=== PATIENT | male | born 1970 | race Caucasian/White ===

== ENCOUNTER → 2018-03-11 15:05 | Outpatient (CLI) | payer OTHER, SELFPAY ==
[2018-03-11 16:35] LABS: PSA,Total - Annual Screen 0.57 ng/mL (0.00-4.00)
== END ==
PROVIDERS: Family Provider Nurse Practitioner; PCP Nurse Practitioner; Visit Provider Urology
DX: Z12.5 Encounter for screening for malignant neoplasm of prostate (principal)
CPT/HCPCS: 36415; 84153; G0103

== ENCOUNTER 2018-09-04 08:57 | Observation (INO) | payer OTHER, SELFPAY ==
[2018-09-04] VITALS (12 sets, daily range): BP systolic 99–151; BP diastolic 56–96; PULSE 51–73; RESP 12–18; TEMP 36.4–36.8; O2SAT 95–98; BMI 26.6; BMI 25.7; BMI 25.8
--- NOTE | 2018-09-04 09:00 | NURSING ---
NO OLD EKGS
--- NOTE | 2018-09-04 09:10 | EKG12_ITS ---
Test Reason : CP/EPIGASTRIC PAIN Blood Pressure : / mmHG Vent. Rate : 070 BPM Atrial Rate : 070 BPM P-R Int : 142 ms QRS Dur : 080 ms QT Int : 404 ms P-R-T Axes : 041 005 056 degrees QTc Int : 436 ms Normal sinus rhythm Normal ECG Confirmed by TJ SIMMS ([id number]), fashion editor DOMENIC FUENTES ([id number]) on 09/08/2018 2:26:21 PM Referred By: ARPAN Confirmed By:TJ SIMMS
--- NOTE | 2018-09-04 09:12 | RAD_ITS ---
STUDY: X-RAY CHEST REASON FOR EXAM: Male, 48 years old. Chest pain. TECHNIQUE: Single AP portable view of the chest. COMPARISON: Comparison is made with prior study dated February 05, 2013. FINDINGS: EKG electrodes are seen. The lungs are clear and expanded. There is no demonstrated pleural abnormality. Normal size heart. Normal mediastinum and jeromy. Normal visualized pulmonary arteries. Normal visualized aortic arch and descending thoracic aorta. Normal visualized thoracic spine. Normal visualized ribs, clavicles, and shoulders. There is no demonstrated abnormality of the visualized soft tissue structures of the upper abdomen. RAD/Chest 1 View (Portable) IMPRESSION: Normal x-ray examination of the chest. Electronically Signed: Jovanny Reich MD at 10:16 EST Tel [phone], Service support ,
[2018-09-04] MEDS: 0.9% Normal Saline 1,000 ML 150 ML IV (09:16)
[2018-09-04] MEDS: Aspirin 81 MG TAB.CHEW 324 MG PO (09:18)
[2018-09-04 09:23] LABS: Absolute Lymphocyte Count 1.72 X10^3/ul (0.83-4.51); Basophil# 0.08 X10^3/uL; Basophil% 1.6 % (0-1); Eosinophil# 0.03 X10^3/uL; Eosinophils% 0.6 % (0-5); Hematocrit 46.7 % (40-54); Hemoglobin 15.8 g/dl (13.0-16.5); Lymphocyte # 1.72 X10^3/ul (4.0); Lymphocyte % 33.8 % (19-41); Mean Corp Hgb Conc 33.8 g/gl (32-36); Mean Corpuscular Volume 94.5 fL (80-94); Mean Platelet Vol. 10.8 fl (6.2-12.0); Monocyte# 0.27 X10^3/uL; Monocyte% 5.3 % (0-10); Neutrophil # 2.99 X10^3/uL (2.7-7.7); Neutrophil % 58.7 % (47-70); Platelet Count 182 K/mm3 (150-450); RBC Distribution Width CV 13.2 % (11.6-14.6); RBC Distribution Width SD 44.4 fl (35.1-43.9); Red Blood Count 4.94 M/mm3 (4.6-6.2); White Blood Count 5.1 K/mm3 (4.4-11.0)
[2018-09-04 09:25] LABS: Differential Indicated SCAN CRITERIA MET; POSITIVE COUNT NO; POSITIVE DIFFERENTIAL NO; POSITIVE MORPHOLOGY YES
--- NOTE | 2018-09-04 09:27 | ED.DCSUM_ITS ---
- ER Visit Summary Date of Service: 09/04/18 Chief Complaint: Chest and abdominal pain History of Present Illness: The patient is a 48 M who sees Linda cali. He reports that beginning yesterday he has had an intermittent upper abdominal and chest pain. He describes it as a sharp pain that lasts 2 minutes at a time. States pain is brought up by walking around and moderate activity. It resolves with rest. Is happened 4-5 times in the past 24 hours when he has been walking. It is not occurred at rest. He denies any associated nausea, vomiting, diaphoresis, or shortness of breath. On review of systems patient does report that he has had diarrhea for the past week. He states this is approximately 3-4 times per day. No blood in his stools or black tarry stools. Patient denies sick contacts. Has not been camping out of the country. No possible bad food exposure. Does not drink well water. No recent antibiotic use. Patient has no cardiac risk factors. He denies personal or family history of DVT. No recent travel. No ankle swelling or calf pain. He did have a stress test approximately 2 years ago. Physical Examination: Vitals: Stable. Afebrile. General: Well-nourished and well-developed. Head: Normocephalic atraumatic. Neck: Supple, no lymphadenopathy. No JVD. Nontender. Cardiovascular: Regular rate and rhythm. No murmurs. Respiratory: No respiratory distress. Clear to auscultation bilaterally. Abdominal: Soft, nontender, nondistended, normal bowel sounds. No guarding, rebound, or peritoneal signs. Back: Nontender. Extremities: Nontender, no edema. Skin: Normal color, no rash. Neurologic: Alert and oriented ?3. Cranial nerves II through XII are intact. Normal strength and sensation. Psych: Normal affect. Test Results: EKG is sinus at [address] changes. There is no old EKG for comparison. CBC is remarkable for basophils of 2. Chem-7 is normal. LFTs are normal. Lipase is normal. Troponin is negative. Chest x-ray shows no acute disease. Emergency Department Course and Treatment: Patient was given aspirin p.o. and is resting comfortably. He has had no pain while here. Treatment Plan: The patient has a history that is highly suspicious of cardiac disease. He does not have risk factors. However, with exertional chest pain is resolved with rest I feel that he warrants admission for further evaluation. He was discussed with Dr. Hardy. Disposition: Admitted in stable condition. Impression: 1. Chest pain. 2. WESTON score of 1. This note was generated with [employer] dictation software. It may contain incorrect words, spelling, and punctuation that were not noted in review of the chart prior to signing ED Disposition - Plan for ED Patient: Chief Complaint: Abd Pain Referrals: Linda Daniel NP-C [Primary Care Provider] -
[2018-09-04 09:43] LABS: AST(SGOT) 18 U/L (15-37); Alanine Aminotransfer ALT/SGPT 29 U/L (16-61); Albumin, Serum 4.3 g/dL (3.2-5.0); Alkaline Phosphatase 60 U/L (45-117); Anion Gap 5 (5-15); BUN 11 mg/dL (7-18); BUN/Creat Ratio 9.9 RATIO (10-20); Bilirubin, Direct 0.17 mg/dL (0.00-0.30); Calcium,Total 8.8 mg/dL (8.5-10.1); Chloride 104 mmol/L (98-107); Creatinine, Serum 1.11 mg/dL (0.70-1.30); EST Glomerular Filtration Rate 75 mL/min (>60); Est Glom Filt Rate - Afr Amer 90 mL/min (>60); Estimated Creatinine Clearance 79.62 ml/min; Globulin 3.6 g/dL (2.2-4.2); Glucose 82 mg/dL (74-106); Lipase 136 U/L (73-393); Potassium 3.8 mmol/L (3.5-5.1); Protein, Total 7.9 g/dL (6.4-8.2); Sodium Level 139 mmol/L (136-145)
[2018-09-04 09:48] LABS: Reactive Lymphocyte 1+
--- NOTE | 2018-09-04 10:50 | NURSING ---
DR SHOAIB ANTONY
--- NOTE | 2018-09-04 10:55 | PCM.HP.STD ---
Problem List (1) Chest pain Status: Acute History of Present Illness Date of Admission: 09/04/18 Chief Complaint: Chest pain The patient is a 48 year old M lady looks good health with no medical comorbidities presents with chest pain. Symptoms started a day prior to coming in. Patient did not related chest pain to any activity. Pain was described as pressure located in the retrosternal region radiating up his neck. In view of the persistent nature of his symptoms he presented to the emergency department. His initial set of cardiac enzymes and EKG came back unremarkable subsequently admitted to a monitored bed for further management Past Medical History Allergies No Known Allergies Allergy (Verified 09/04/18 09:00) Home Medications: Ambulatory Orders Medication Instructions Recorded NK 09/04/18 Smoking Status: Never smoker - *Family History Maternal History Items: - - Osteoarthritis Paternal History Items: No pertinent history Review of Systems Constitutional: Denies: Anorexia, Chills, Fever, Night Sweats, Weight Change HEENT: Denies: Head Aches, Sinus Congestion, Sinus Drainage Cardiovascular: Reports: Chest Pain. Denies: Orthopnea, Palpitations, Paroxysmal Noc. Dyspnea Respiratory: Denies: Cough, Shortness of breath at rest, Shortness of breath upon exertion, Sputum production Gastrointestinal: Denies: Abdominal Pain, Hematemesis, Hematochezia, Nausea, Melena, Vomiting Genitourinary: Denies: Dysuria, Frequency, Hematuria, Urgency Musculoskeletal: Denies: Joint Pain, Joint Tenderness Skin: Denies: Rash Neurological: Denies: Focal weakness, Numbness, Tingling Psychiatric: Denies: Homicidal Ideations, Suicidal Ideations Hematologic/ Lymphatic: Denies: Easy Bruising, Easy Bleeding VTE Information - Inpt Only VTE Present on Admission: No VTE Mechan Device Prophylaxis: Knee High EVAN Hose VTE Pharm Prophylaxis ordered?: Yes Patient Problems: Active and Suspected Problems Chest pain (Acute) Objective: GENERAL: cooperative HEENT: Atraumatic; moist oral mucosa EYES; Anicteric, Normal Conjunctiva NECK; supple, normal thyroid, no distended JVD. RESPIRATORY: Diminished to auscultation bilaterally, CARDIOVASCULAR: Regular S1 S2, no audible murmurs GI: soft, non-tender, normoactive bowel sounds, : No Renal angle tenderness; EXTREMITIES: No edema, no clubbing, no cyanosis. MUSCULOSKELETAL: No Joint Tenderness; no muscle waisting NEURO: Awake; no lateralizing signs. SKIN: No Rash PSYCH; Normal affect - Physical Exam Vital Signs Temp Pulse Resp BP Pulse Ox 97.6 F L 63 15 119/82 H 98 09/04/18 08:59 09/04/18 10:00 09/04/18 10:00 09/04/18 10:00 09/04/18 10:00 Oxygen Delivery Method Room Air Weight: 81.647 kg Body Mass Index (BMI) 26.6 Laboratory Tests Past 24 Hrs 09/04/18 09/04/18 09/04/18 09:10 09:10 09:10 WBC 5.1 RBC 4.94 Hgb 15.8 Hct 46.7 MCV 94.5 H MCH 32.0 MCHC 33.8 RDW 13.2 RDW Differential 44.4 H Plt Count 182 MPV 10.8 Immature Gran % (Auto) 0.000 Neut % (Auto) 58.7 Lymph % (Auto) 33.8 [place] % (Auto) 5.3 Eos % (Auto) 0.6 Baso % (Auto) 1.6 H Absolute Neuts (auto) 3.0 Absolute Lymphs (auto) 1.72 Total Counted Not Reportable Reactive Lymphocytes 1+ Sodium 139 Potassium 3.8 Chloride 104 Carbon Dioxide 30.0 Anion Gap 5 BUN 11 Creatinine 1.11 Estim Creat Clear Calc 79.62 Est GFR (MDRD) Af Amer 90 Est GFR (MDRD) Non-Af 75 BUN/Creatinine Ratio 9.9 L Glucose 82 Calcium 8.8 Total Bilirubin 0.70 Direct Bilirubin 0.17 AST 18 ALT 29 Alkaline Phosphatase 60 Troponin I < 0.015 Total Protein 7.9 Albumin 4.3 Globulin 3.6 Lipase 136 Assessment/Plan All Active Problems Chest pain (Acute) Patient is a 48-year-old gentleman presenting with chest pain 1. Chest pain patient has been placed on monitored bed plan is to rule out CT with serial cardiac enzyme with a nuclear stress test 2. DVT prophylaxis SC Lovenox Code Visit OBSV E&M: 54936 Initial observation care L2
--- NOTE | 2018-09-04 11:03 | NURSING ---
PCU CP KITMERLY
--- NOTE | 2018-09-04 11:28 | ECHOD_ITS ---
Reason For Study: Chest pain Procedure This was a 2D Doppler, Color Flow transthoracic echocardiogram. The exam was of adequate technical quality. Exam performed portable in patient room. Left Ventricle Normal LV size. Left ventricular systolic function is normal. The estimated ejection fraction is 60 %. Transmitral doppler flow suggestive of impaired relaxation of left ventricle. No regional wall motion abnormalities noted. Right Ventricle Normal RV size. Normal systolic function. Atria Normal left atrium. Normal right atrium. No doppler evidence for ASD. Mitral Valve There is no mitral annular calcification. Mild diffuse mitral valve thickening. Trivial mitral valve insufficiency. Tricuspid Valve Normal tricuspid valve. Trivial tricuspid valve insufficiency. Aortic Valve Trisinus/trileaflet aortic valve. Normal aortic valve. Pulmonic Valve The pulmonic valve is not well visualized. Trivial pulmonic valve insufficiency. Great Vessels Borderline enlarged aortic root. Pericardium/Pleural No pericardial effusion. MMode/2D Measurements & Calculations LVIDd: 4.8 cm IVSd: 0.80 cm Ao root diam: 3.9 cm LVIDs: 3.1 cm LVPWd: 0.80 cm RVDd: 3.5 cm FS: 35.9 % LAV(MOD-bp): 37.4 ml EDV(MOD-sp4): 98.0 ml EDV(MOD-sp2): 108.1 ml LAV(MOD-bp) Indexed: 19.2 ml/m2 ESV(MOD-sp4): 46.6 ml EF(MOD-sp2): 58.0 % LAV(MOD-sp2): 36.3 ml EF(MOD-sp4): 52.4 % LAV(MOD-sp4): 34.4 ml SV(MOD-sp4): 51.4 ml SV(MOD-sp2): 62.7 ml LA A4 area: 15.2 cm2 LA dimension(2D): 2.7 cm RA A4 area: 14.7 cm2 Doppler Measurements & Calculations MV E max gopi: 52.2 cm/sec Lat Peak E' Gopi: 12.6 cm/sec Med Peak E' Gopi: 9.6 cm/sec MV A max gopi: 56.4 cm/sec E/E' lat: 4.1 E/E' med: 5.5 MV E/A: 0.93 Ao V2 max: 110.9 cm/sec LV V1 max: 91.6 cm/sec PA V2 max: 92.5 cm/sec Ao max P.9 mmHg LV V1 max P.4 mmHg Interpretation Summary Left ventricular systolic function is normal. The estimated ejection fraction is 60 %. Trivial mitral valve insufficiency. Trivial tricuspid valve insufficiency. Trivial pulmonic valve insufficiency. Borderline enlarged aortic root. Transmitral doppler flow suggestive of impaired relaxation of left ventricle Ordering Physician: Romeo Chopra Performed By: Elsa Little RDCS
--- NOTE | 2018-09-04 11:30 | EKG12_ITS ---
Test Reason : CP ADMISSION Blood Pressure : / mmHG Vent. Rate : 057 BPM Atrial Rate : 057 BPM P-R Int : 162 ms QRS Dur : 094 ms QT Int : 432 ms P-R-T Axes : 056 006 058 degrees QTc Int : 420 ms Sinus bradycardia Otherwise normal ECG No previous ECGs available Confirmed by TJ SIMMS ([id number]), city editor DOMENIC FUENTES ([id number]) on 09/08/2018 2:58:30 PM Referred By: SHOAIB Confirmed By:TJ SIMMS
[2018-09-04] MEDS: Acetaminophen 325 MG Tablet 650 MG PO (17:58)
[2018-09-05 02:35] VITALS: BP 95/48; PULSE 53; RESP 16; TEMP 36.9; O2SAT 96
[2018-09-05 02:58] VITALS: PULSE 60
[2018-09-05 05:31] LABS: Prothrombin Time (Protime)PT. 12.8 SECONDS (11.7-14.9)
[2018-09-05 05:32] LABS: Partial Thromboplast Time 26.2 Seconds (24.1-36.2)
[2018-09-05 05:37] LABS: D-Dimer Quantitative (DVT/PE) < 0.27 FEU/ug/m (0.27-0.49)
[2018-09-05 05:45] VITALS: BP 103/64; PULSE 57; RESP 16; TEMP 36.6; O2SAT 97
[2018-09-05 05:51] LABS: AST(SGOT) 15 U/L (15-37); Alanine Aminotransfer ALT/SGPT 26 U/L (16-61); Albumin, Serum 3.6 g/dL (3.2-5.0); Alkaline Phosphatase 51 U/L (45-117); Anion Gap 7 (5-15); BUN 10 mg/dL (7-18); BUN/Creat Ratio 10.4 RATIO (10-20); Bilirubin, Direct 0.14 mg/dL (0.00-0.30); Calcium,Total 8.3 mg/dL (8.5-10.1); Chloride 107 mmol/L (98-107); Creatinine, Serum 0.96 mg/dL (0.70-1.30); EST Glomerular Filtration Rate 88 mL/min (>60); Est Glom Filt Rate - Afr Amer 106 mL/min (>60); Estimated Creatinine Clearance 92.06 ml/min; Globulin 3.1 g/dL (2.2-4.2); Glucose 84 mg/dL (74-106); Potassium 4.1 mmol/L (3.5-5.1); Protein, Total 6.7 g/dL (6.4-8.2); Sodium Level 141 mmol/L (136-145); Thyroid Stim Hormone (TSH) 2.34 uIU/mL (0.358-3.74)
[2018-09-05] MEDS: Aspirin E.C. 81 MG Tablet PO (05:55)
[2018-09-05 06:00] LABS: Absolute Neutrophil Count 2.9 X10^3/uL (2.0-7.7); Basophil# 0.07 X10^3/uL; Basophil% 1.4 % (0-1); Eosinophils% 1.9 % (0-5); Hematocrit 44.9 % (40-54); Mean Corp Hgb Conc 33.4 g/gl (32-36); Mean Corpuscular Hgb 31.6 pg (27.0-32.0); Mean Corpuscular Volume 94.7 fL (80-94); Mean Platelet Vol. 10.8 fl (6.2-12.0); Monocyte# 0.36 X10^3/uL; Neutrophil # 2.91 X10^3/uL (2.7-7.7); Neutrophil % 56.5 % (47-70); Platelet Count 163 K/mm3 (150-450); RBC Distribution Width CV 13.2 % (11.6-14.6); RBC Distribution Width SD 44.5 fl (35.1-43.9); Red Blood Count 4.74 M/mm3 (4.6-6.2); White Blood Count 5.2 K/mm3 (4.4-11.0)
[2018-09-05 06:02] LABS: Differential Indicated SCAN CRITERIA MET; POSITIVE COUNT NO; POSITIVE DIFFERENTIAL NO; POSITIVE MORPHOLOGY YES
[2018-09-05 09:26] VITALS: BP 97/66; PULSE 68; RESP 16; TEMP 36.6; O2SAT 98
[2018-09-05] MEDS: Acetaminophen 325 MG Tablet 650 MG PO (09:39)
[2018-09-05 10:00] VITALS: PULSE 74
--- NOTE | 2018-09-05 10:38 | STRESSREP ---
Stress Test Report Exercise myocardial perfusion stress test 48-year-old male with a history of chest pain. Resting EKG demonstrates normal sinus rhythm with a rate of 59 beats minute normal intervals and noted resting blood pressure 116/78 mmHg. The patient exercised according to regular Elias protocol for total duration of 10 minutes patient completed 1 minute into stage IV of the Elias protocol the maximum heart rate attained was 164 bpm which was 96% of maximum predicted heart rate the maximum workload was 11.7 metabolic equivalents. At rest there were no ST or T wave changes noted suggest ischemia peak exercise upsloping ST changes were noted suggest ischemia no clinical angina was noted. Resting blood pressure 116/78 with a peak blood pressure 152/68. Rate pressure product was 24,600. Myocardial perfusion protocol. 11.8 mCi of technetium 99m sestamibi was injected at rest. The patient exercised according to regular Elias protocol for 10 minutes. At peak exercise 34.3 mCi of technetium 99m sestamibi was injected stress images were obtained stress and rest images were reconstructed and compared in the short axis vertical long horizontal long axis. Gated images were also obtained Perfusion SPECT analysis: Review of the stress images demonstrate normal uptake of tracer noted in all the rest of the myocardium. The resting images similarly demonstrate normal uptake of tracer noted in all areas of the myocardium. No areas of reversibility are noted suggest ischemia. Gated SPECT analysis: The gated ejection fraction is noted to be 65%. Conclusion: Normal exercise myocardial perfusion stress test at a high workload. No clinical angina noted. No arrhythmias present. Preserved ejection fraction.
--- NOTE | 2018-09-05 10:52 | PCM.DC.SUM ---
Discharge Date and Diagnosis - Problem List Patient Problems: Active and Suspected Problems Chest pain (Acute) Date of Admission: 09/04/18 - Primary Discharge Diagnosis Active and Suspected Problems Chest pain (Acute) Hospital Course and Treatment Imaging Results: 09/05/18 05:55 Nuclear Stress Test - Treadmil [NM] AM (NON MEDS) Summary of Care Provided: The patient is a 48 year old M [] Patient Problems: Active and Suspected Problems Chest pain (Acute) - Physical Exam Vital Signs Temp Pulse Resp BP Pulse Ox 97.9 F 74 16 97/66 98 09/05/18 09:26 09/05/18 10:00 09/05/18 09:26 09/05/18 09:26 09/05/18 09:26 Oxygen Delivery Method Room Air Weight: 79.2 kg Body Mass Index (BMI) 25.7 Intake and Output for Last 24 Hours 09/03/18 09/04/18 09/05/18 23:59 23:59 23:59 Intake Total 540 / 540 240 / 240 Balance 540 / 540 240 / 240 Laboratory Tests Past 24 Hrs 09/04/18 09/04/18 09/05/18 12:00 15:15 05:05 WBC RBC Hgb Hct MCV MCH MCHC RDW RDW Differential Plt Count MPV Immature Gran % (Auto) Neut % (Auto) Lymph % (Auto) [place] % (Auto) Eos % (Auto) Baso % (Auto) Absolute Neuts (auto) Absolute Lymphs (auto) Total Counted PT 12.8 INR 1.0 APTT 26.2 D-Dimer Quant (PE/DVT) < 0.27 L Sodium Potassium Chloride Carbon Dioxide Anion Gap BUN Creatinine Estim Creat Clear Calc Est GFR (MDRD) Af Amer Est GFR (MDRD) Non-Af BUN/Creatinine Ratio Glucose Calcium Total Bilirubin Direct Bilirubin AST ALT Alkaline Phosphatase Troponin I < 0.015 < 0.015 Total Protein Albumin Globulin TSH 09/05/18 09/05/18 05:05 05:05 WBC 5.2 RBC 4.74 Hgb 15.0 Hct 44.9 MCV 94.7 H MCH 31.6 MCHC 33.4 RDW 13.2 RDW Differential 44.5 H Plt Count 163 MPV 10.8 Immature Gran % (Auto) 0.200 Neut % (Auto) 56.5 Lymph % (Auto) 33.0 [place] % (Auto) 7.0 Eos % (Auto) 1.9 Baso % (Auto) 1.4 H Absolute Neuts (auto) 2.9 Absolute Lymphs (auto) 1.70 Total Counted Not Reportable PT INR APTT D-Dimer Quant (PE/DVT) Sodium 141 Potassium 4.1 Chloride 107 Carbon Dioxide 27.0 Anion Gap 7 BUN 10 Creatinine 0.96 Estim Creat Clear Calc 92.06 Est GFR (MDRD) Af Amer 106 Est GFR (MDRD) Non-Af 88 BUN/Creatinine Ratio 10.4 Glucose 84 Calcium 8.3 L Total Bilirubin 0.50 Direct Bilirubin 0.14 AST 15 ALT 26 Alkaline Phosphatase 51 Troponin I Total Protein 6.7 Albumin 3.6 Globulin 3.1 TSH 2.34 Home Medications: Medications to take at Discharge NK 09/04/18 Primary Care Physician: Linda Daniel NP-C [Primary Care Provider] - Medical Necessity - Tobacco Use Smoking Status: Never smoker
--- NOTE | 2018-09-05 10:54 | DCINST_ITS ---
- Discharge Diagnoses Current Active Problems: Current Active and Chronic Problems Chest pain (Acute) You will use the following diet at home:: No restrictions Your food should be the consistency of: Regular Discharge Activity: Return to Normal Activity Instructions: ED Chest Pain NonCardiac Allergies/Adverse Reactions: Allergies No Known Allergies Allergy (Verified 09/04/18 09:00) Medications to take at Discharge NK 09/04/18 Primary Care Physician: Linda Daniel NP-C [Primary Care Provider] - Please follow up with your Primary Care Physician in: in 1-2 weeks Test Results: Test results from this visit will be discussed in further detail at your follow- up appointment, if applicable. Proposed Discharge Date: 09/05/18
--- NOTE | 2018-09-05 10:56 | DS.PCM_ITS ---
Discharge Date and Diagnosis - Problem List Patient Problems: Active and Suspected Problems Chest pain (Acute) Date of Admission: 09/04/18 Date of Discharge: 09/05/18 - Primary Discharge Diagnosis Active and Suspected Problems Chest pain (Acute) Hospital Course and Treatment Imaging Results: 09/05/18 05:55 Nuclear Stress Test - Treadmil [NM] AM (NON MEDS) Summary of Care Provided: Patient is a 48-year-old gentleman presenting with chest pain she was placed on a monitored bed did rule out AR with serial cardiac enzyme patient subsequently underwent a nuclear stress test which is negative for stress-induced ischemia. Patient was discharged instructed to follow-up with PCP for subsequent care Patient Problems: Active and Suspected Problems Chest pain (Acute) - Physical Exam General: Alert Neck: No JVD Lungs: Clear to auscultation Cardiovascular: Regular rate Neurological: Neuro grossly intact Vital Signs Temp Pulse Resp BP Pulse Ox 97.9 F 74 16 97/66 98 09/05/18 09:26 09/05/18 10:00 09/05/18 09:26 09/05/18 09:26 09/05/18 09:26 Oxygen Delivery Method Room Air Weight: 79.2 kg Body Mass Index (BMI) 25.7 Intake and Output for Last 24 Hours 09/03/18 09/04/18 09/05/18 23:59 23:59 23:59 Intake Total 540 / 540 240 / 240 Balance 540 / 540 240 / 240 Laboratory Tests Past 24 Hrs 09/04/18 09/04/18 09/05/18 12:00 15:15 05:05 WBC RBC Hgb Hct MCV MCH MCHC RDW RDW Differential Plt Count MPV Immature Gran % (Auto) Neut % (Auto) Lymph % (Auto) [place] % (Auto) Eos % (Auto) Baso % (Auto) Absolute Neuts (auto) Absolute Lymphs (auto) Total Counted PT 12.8 INR 1.0 APTT 26.2 D-Dimer Quant (PE/DVT) < 0.27 L Sodium Potassium Chloride Carbon Dioxide Anion Gap BUN Creatinine Estim Creat Clear Calc Est GFR (MDRD) Af Amer Est GFR (MDRD) Non-Af BUN/Creatinine Ratio Glucose Calcium Total Bilirubin Direct Bilirubin AST ALT Alkaline Phosphatase Troponin I < 0.015 < 0.015 Total Protein Albumin Globulin TSH 09/05/18 09/05/18 05:05 05:05 WBC 5.2 RBC 4.74 Hgb 15.0 Hct 44.9 MCV 94.7 H MCH 31.6 MCHC 33.4 RDW 13.2 RDW Differential 44.5 H Plt Count 163 MPV 10.8 Immature Gran % (Auto) 0.200 Neut % (Auto) 56.5 Lymph % (Auto) 33.0 [place] % (Auto) 7.0 Eos % (Auto) 1.9 Baso % (Auto) 1.4 H Absolute Neuts (auto) 2.9 Absolute Lymphs (auto) 1.70 Total Counted Not Reportable PT INR APTT D-Dimer Quant (PE/DVT) Sodium 141 Potassium 4.1 Chloride 107 Carbon Dioxide 27.0 Anion Gap 7 BUN 10 Creatinine 0.96 Estim Creat Clear Calc 92.06 Est GFR (MDRD) Af Amer 106 Est GFR (MDRD) Non-Af 88 BUN/Creatinine Ratio 10.4 Glucose 84 Calcium 8.3 L Total Bilirubin 0.50 Direct Bilirubin 0.14 AST 15 ALT 26 Alkaline Phosphatase 51 Troponin I Total Protein 6.7 Albumin 3.6 Globulin 3.1 TSH 2.34 Discharge Diet: No Restrictions Discharge Activity: Return to Normal Activity Home Medications: Medications to take at Discharge NK 09/04/18 Primary Care Physician: Linda Daniel NP-C [Primary Care Provider] - Please follow up with your Primary Care Physician in: in 1-2 weeks Patient Instructions: ED Chest Pain NonCardiac Disposition: Home Minutes spent on discharge:: 35 Patient Condition:: Stable Medical Necessity - Tobacco Use Smoking Status: Never smoker Meaningful Use Info Meaningful Use Diagnoses (Choose all that apply): None applicable Code Visit OBSV E&M: 53258 Observation care discharge
== END 2018-09-05 10:53 | disposition home or self-care (01) ==
LOC: ED 09:26 → PCU 11:14
PROVIDERS: Admitting Provider Internal Medicine; Emergency Provider Emergency Medicine; Family Provider Nurse Practitioner; PCP Nurse Practitioner; Visit Provider Internal Medicine
DX: R07.89 Other chest pain (principal); R19.7 Diarrhea, unspecified; K21.9 Gastro-esophageal reflux disease without esophagitis
CPT/HCPCS: 36415; 71045; 78452; 80048; 80076; 83690; 84443; 84484; 85025; 85379; 85610; 85730; 93005; 93017; 93306; 96360; 96361; 99218; 99284; A9500; J7030; A4216; G0378

== ENCOUNTER → 2018-09-10 13:55 | Outpatient (CLI) | payer OTHER, SELFPAY ==
[2018-09-10 14:21] LABS: Potassium 4.2 mmol/L (3.5-5.1)
== END ==
PROVIDERS: Visit Provider Nurse Practitioner
DX: E87.5 Hyperkalemia (principal)
CPT/HCPCS: 84132

== ENCOUNTER → 2018-12-05 08:28 | Outpatient (CLI) | payer OTHER, SELFPAY ==
--- NOTE | 2018-12-05 08:33 | RAD_ITS ---
STUDY: X-RAY - LEFT HAND REASON FOR EXAM: Male, 48 years old. Pain and swelling of the third through fifth metacarpals following an injury. TECHNIQUE: 3 view(s) of the hand. COMPARISON: None. FINDINGS: Normal radiocarpal articulation. Normal distal radioulnar joint. Normal visualized carpal bones. Normal carpal articulations Normal carpometacarpal articulation of the thumb. Normal second through fifth carpometacarpal joints. Nondisplaced fracture at the base of the fifth metacarpal. Normal metacarpophalangeal joint of the thumb. Normal interphalangeal joint of the thumb. Normal proximal and distal phalanges of the thumb. Normal metacarpophalangeal joints of the second through fifth fingers. Normal proximal and distal interphalangeal joints of the second through fifth fingers. Normal phalanges of the second through fifth fingers. Soft tissue swelling. RAD/Hand Min 3 Views IMPRESSION: Nondisplaced fracture at the base of the fifth metacarpal with overlying soft tissue swelling. Electronically Signed: Jovanny Reich MD at 9:25 EST , Service support ,
== END ==
PROVIDERS: PCP Nurse Practitioner; Visit Provider Internal Medicine
DX: M79.642 Pain in left hand (principal)
CPT/HCPCS: 73130

== ENCOUNTER → 2020-05-25 08:20 | Outpatient (CLI) | payer OTHER, SELFPAY ==
--- NOTE | 2020-05-25 08:22 | RAD_ITS ---
STUDY: X-RAY CHEST REASON FOR EXAM: Male, 49 years old. COMPLAINT OF HOT FLASHES X MONTHS, NO OTHER CHEST COMPLAINTS TECHNIQUE: PA and lateral views of the chest. COMPARISON: Comparison is made with prior examination 09/04/2018. FINDINGS: Hyperinflation. Decreased bronchovascular markings in both lungs suggestive of a emphysematous changes. There is no demonstrated pleural abnormality. Normal size heart. Normal mediastinum and jeromy. Normal visualized pulmonary arteries. Normal visualized aortic arch and descending thoracic aorta. Normal visualized thoracic spine. Normal visualized ribs, clavicles, and shoulders. There is no demonstrated abnormality of the visualized soft tissue structures of the upper abdomen. RAD/Chest PA and Lateral IMPRESSION: Hyperinflation. Decreased bilateral bronchovascular markings in both lungs suggestive of emphysematous change. Electronically Signed: Jovanny Reich, at 14:21 EDT , Service support ,
== END ==
PROVIDERS: PCP Nurse Practitioner; Referring Provider Nurse Practitioner; Visit Provider Nurse Practitioner
DX: R23.2 Flushing (principal)
CPT/HCPCS: 71046

== ENCOUNTER → 2020-06-09 10:02 | Outpatient (CLI) | payer OTHER, SELFPAY ==
--- NOTE | 2020-06-10 10:23 | PFT ---
INTRODUCTION: The patient is a 49-year-old male that presents for pulmonary function studies secondary to a diagnosis of asthma. Respiratory therapy reports good patient effort. Bronchodilators were used during testing. INTERPRETATION: Forced expiration spirometry demonstrates no evidence of a large airways obstructive ventilatory defect. There was no significant response to aerosolized bronchodilators. Spirograms are of good quality and plateau normally. Body plethysmography was performed and reveals lung volumes to be within normal limits. Diffusing capacity by single breath CO is also within normal limits. IMPRESSION: Grossly normal pulmonary function studies.
== END ==
PROVIDERS: PCP Nurse Practitioner; Referring Provider Nurse Practitioner; Visit Provider Nurse Practitioner
DX: R93.89 Abnormal findings on diagnostic imaging of other specified body structures (principal)
CPT/HCPCS: 94060; 94726; 94729

== ENCOUNTER → 2020-10-31 06:58 | Outpatient (CLI) | payer OTHER, SELFPAY ==
--- NOTE | 2020-10-31 07:26 | MRI_ITS ---
STUDY: MRI BRAIN WITH AND WITHOUT CONTRAST (ATTENTION PITUITARY GLAND) REASON FOR EXAM: Male, 50 years old. elevated prolactin, hot flashes in male TECHNIQUE: Standardized multiplanar fat and water weighted pulse sequences were obtained. IV 15ml Dotarem was administered for the contrast portion of the examination. COMPARISON: None. FINDINGS: Normal size of the pituitary gland for the patient?s age and gender. Normal enhancement of the pituitary gland, without a demonstrated intrapituitary lesion. Normal infundibular stalk and suprasellar cistern. Normal optic chiasm and hypothalamus. Normal size of the ventricles and extra-axial spaces for the patient''s age. Normal white matter tracts of the supratentorial brain. Normal bilateral basal ganglia. Normal thalami. Normal flow voids within the major intracranial circulation suggesting patency by spin echo criteria. Normal venous enhancement. There is no enhancing intra-axial or extra-axial abnormality. There is no extra-axial fluid accumulation. Normal tectal plate and pineal gland. Normal midbrain, deonte and medulla. Normal cerebellum. Normal basal cisterns. Normal bilateral temporal bones. Normal bilateral internal auditory canals. No demonstrated orbital abnormality, within the constraints of a routine brain study. Normal visualized paranasal sinuses. Normal calvarium and skull base. Normal visualized upper cervical spine. Normal visualized soft tissue structures. MRI/Brain W/WO Contrast IMPRESSION: Normal unenhanced and enhanced MRI of the pituitary gland. Electronically Signed: Carmen Spivey MD at 8:45 EST Tel , Service support ,
== END ==
PROVIDERS: PCP Nurse Practitioner; Referring Provider Nurse Practitioner; Visit Provider Nurse Practitioner
DX: R79.89 Other specified abnormal findings of blood chemistry (principal)
CPT/HCPCS: 70553; A9575

== ENCOUNTER → 2020-11-08 09:52 | Outpatient (CLI) | payer OTHER, SELFPAY ==
[2020-11-08 10:19] LABS: D-Dimer Quantitative (DVT/PE) 0.29 FEU/ug/m (0.27-0.49)
== END ==
PROVIDERS: PCP Nurse Practitioner; Visit Provider Nurse Practitioner
DX: R06.02 Shortness of breath (principal)
CPT/HCPCS: 85379

== ENCOUNTER 2021-12-26 12:06 | Outpatient (CLI) | payer OTHER, SELFPAY ==
[2021-12-26 12:46] LABS: D-Dimer Quantitative (DVT/PE) < 0.27 FEU/ug/m (0.27-0.49)
[2021-12-26 13:00] LABS: Vitamin B12 534 pg/mL (211-911)
[2021-12-26 13:27] LABS: ALB/GLOB Ratio 1.2 RATIO (0.9-2.4); AST(SGOT) 14 U/L (15-37); Alanine Aminotransfer ALT/SGPT 26 U/L (16-61); Albumin, Serum 4.2 g/dL (3.2-5.0); Alkaline Phosphatase 62 U/L (45-117); Anion Gap 6 (5-15); BUN 12 mg/dL (7-18); BUN/Creat Ratio 13.2 RATIO (10-20); CPK Total, Creatine Kinase 92 U/L (39-308); Calcium,Total 8.8 mg/dL (8.5-10.1); Chloride 105 mmol/L (98-107); Creatinine, Serum 0.91 mg/dL (0.70-1.30); EST Glomerular Filtration Rate 93 mL/min (>60); Est Glom Filt Rate - Afr Amer 112 mL/min (>60); Estradiol 45.9 pg/mL; Globulin 3.5 g/dL (2.2-4.2); Glucose 80 mg/dL (74-106); Potassium 4.1 mmol/L (3.5-5.1); Prolactin 5.3 ng/mL; Protein, Total 7.7 g/dL (6.4-8.2); Sodium Level 140 mmol/L (136-145); Troponin-I HS 3 pg/mL (3.0-78.0)
[2021-12-30 18:07] LABS: Testosterone, % Free 1.89 % (1.50-4.20); Testosterone, Free 16.95 ng/dL (5.00-21.00)
[2022-01-01 12:24] LABS: Myoglobin, Serum 25 ng/mL (28-72); Testosterone, Total 897 ng/dL (264-916)
== END 2021-12-26 23:59 | disposition home or self-care (01) ==
LOC: LABSPEC 12:08
PROVIDERS: PCP Nurse Practitioner; Referring Provider Nurse Practitioner; Visit Provider Nurse Practitioner
DX: R79.9 Abnormal finding of blood chemistry, unspecified (principal); R53.83 Other fatigue; R07.89 Other chest pain
CPT/HCPCS: 80053; 82550; 82607; 82670; 82746; 83874; 84146; 84402; 84403; 84484; 85379

== ENCOUNTER 2024-06-12 07:45 | Outpatient (RCR) | payer OTHER, SELFPAY ==
--- NOTE | 2024-06-12 08:25 | HP.PTEVAL ---
Patient's Visit Information Visit Information Visit Information: MYA MARTÍNEZ is a 53 year old M referred to Physical Therapy by Katharine Cyr, YO-C with a diagnosis of vertigo. Date of Evaluation: 06/12/24 Physical Therapist: Chris Cyr, DPT, OCS, CSCS Visit Plan Plan: No skilled PT required, symptoms have resolved and normal vestibular eval today Subjective Subjective: I had vertigo bad one day a month ago possibly from jumping in pool. Next morning was spinning and that spinning kept him in bed until 1 pm. Slowly improved after one oclcok and the rest of the day was pretty normal. Ear was a little red but no other diagnostics. Given meclizine. Saw doctor the next day. Was fine and life back to normal at that point. Activities are normal but has not gone back in pool. Had long haul covid. 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 sleep is normal. Home activities are normal. Objective Objective: Walks into PT without deficits and safe and I with trasnfers and steps reciprocal without rail. Bending and recovering adn VOR walking without any LOB., cervical aROM WFL and UE AROM WFL and no pain. Sensation UE WNL to gross light touch. - B hallpike felisa - roll test Oculomotor: no nystagmus with gaze or head shake - skew eye deviation - ocular tilt - head thrust DVA within 2 lines of SVA normal pursuit and saccades and VOR H and V without symptoms. Moves confidently adn comfortably and without symptoms for weeks now. Balance/Special Test Scores Dizziness Score: 2 Rehabilitation Potential Physical Therapy Diagnosis: Likely had vestibulitis but resolved Anticipated Interventions Text: Thank you for the opportunity to evaluate your patient. For Medicare and Medicare HMO plans, please review the plan of care and approve it. It will need to be FAXED BACK to us at [phone] for Medicare purposes. For Medicare only, by signing this I certify the plan of care. Please let me know if there are questions or concerns regarding this plan of care. Physician Signature: Date:
== END 2024-06-12 08:53 | disposition home or self-care (01) ==
LOC: PT 07:45
PROVIDERS: PCP Nurse Practitioner; Referring Provider Nurse Practitioner Family; Visit Provider Nurse Practitioner Family
DX: R42 Dizziness and giddiness (principal)
CPT/HCPCS: 97161